=== PATIENT | female | born 1985 | race Caucasian/White ===

== ENCOUNTER 2016-07-10 13:21 | Emergency (ER) | payer OTHER ==
[~2016-07-10 13:21] MED LIST: ADVAIR 2501 DISK W/D PO; ALBUTEROL17 GM INH; BIRTH CONTROL PILL PO; BUSPAR15 MG PO; CATAFLAM50 MG PO; CELEXA20 MG PO; CLARITIN10 M2 PO; KEFLEX500 MG PO; LEXAPRO5 MG PO; MOTRIN600 MG PO; PEPCID AC20 MG PO; PROMETHAZINE-D240 ML PO; REQUIP1 MG PO; SUMATRIPTAN SUC50 MG PO; TOPAMAX25 MG PO; VITANATAL OB +1 EACH; ZANTAC150 M1; ZANTAC150 MG PO; ZOFRAN ODT4 MG PO; ZYRTEC5 M2 PO
== END 2016-07-10 13:47 | disposition home or self-care (01) ==
LOC: SED 13:21
DX: B37.9 Candidiasis, unspecified (principal); R13.10 Dysphagia, unspecified; J44.9 Chronic obstructive pulmonary disease, unspecified; F31.9 Bipolar disorder, unspecified; F17.200 Nicotine dependence, unspecified, uncomplicated; Z90.49 Acquired absence of other specified parts of digestive tract
CPT/HCPCS: 99282

== ENCOUNTER 2016-09-23 11:08 | Emergency (ER) | payer OTHER | END 2016-09-23 12:44 | disposition home or self-care (01) | LOC: CED 11:08 | DX: K02.9 Dental caries, unspecified (principal); F17.200 Nicotine dependence, unspecified, uncomplicated | CPT/HCPCS: 64400; 99283 ==

== ENCOUNTER 2016-10-22 18:58 | Emergency (ER) | payer OTHER ==
--- NOTE | ~2016-10-22 | CR56 ---
[facility] A Service of [facility] RADIOLOGY TEXT RESULTS PATIENT: RAKEL CHAPARRO LOCATION: SED : 85 UNIT #: [id number] AGE: [address]: Consuelo Mckeon APRN SEX: F ORDER DR: [id number] [address] [id number] [id number] E MR#: [id number] Acc #: [id number] NAME: RAKEL CHAPARRO : 1985 SEX: F STUDY DATE/TIME: 10/22/2016 19:46 UNIT: SED ROOM: STUDY DESCRIPTION: CR Calcaneus Min 2 Views Rt Attending Physician: Consuelo Mckeon A.P.R.N. Ordering Physician: Consuelo Mckeon A.P.R.N. Primary Care Physician: Narciso Olivares M.D. MEDICAL IMAGING REPORT This report is preliminary unless electronic signature is present. EXAM Right calcaneus, 10/22/2016, 1946 hours. CLINICAL HISTORY Right heel pain for 3 days. No known injury. COMPARISON None. FINDINGS Lateral and Rodriguez views of the calcaneus demonstrate no fracture. There is spurring at the Achilles insertion site on the posterior calcaneus. There is a large plantar calcaneal spur measuring up to 1.4 cm in length. Subtalar joints appear normal. IMPRESSION 1. No calcaneal fracture. 2. Small spur at the Achilles insertion. 3. Large spur measuring up to 1.4 cm in length at the plantar surface of the calcaneus. Dictated by... Loreta Galloway M.D. THIS IS AN ELECTRONICALLY VERIFIED REPORT Loreta Galloway M.D. at 10/23/2016 6:41 PM DEVANTE/lorin TD: 10/23/2016 10:15 JOB #: [id number] MEDICAL IMAGING REPORT [facility] A Service [facility] RADIOLOGY TEXT RESULTS PATIENT: RAKEL CHAPARRO LOCATION: SED : 85 UNIT #: [id number] AGE: [address]: Consuelo Mckeon APRN SEX: F ORDER DR: Page 1 of 1
[2016-10-22] MEDS ORDERED: NO MEDICATIONS (19:09)
== END 2016-10-22 21:30 | disposition home or self-care (01) ==
LOC: SED 18:58
DX: M79.671 Pain in right foot (principal); F31.9 Bipolar disorder, unspecified; J44.9 Chronic obstructive pulmonary disease, unspecified; G35 Multiple sclerosis; F17.200 Nicotine dependence, unspecified, uncomplicated; Z88.0 Allergy status to penicillin; Z88.5 Allergy status to narcotic agent
CPT/HCPCS: 29405; 73650; 96372; 99283; J1885